=== PATIENT | female | born 1975 | race American Indian/Alaskan Native ===

== ENCOUNTER 2017-04-29 18:58 | Emergency (ER) | payer BC ==
[2017-04-29 19:08] VITALS: BMI 19.3
[2017-04-29 19:11] VITALS: BP 99/63; PULSE 88; RESP 18; TEMP 97.8; O2SAT 98
--- NOTE | 2017-04-29 20:01 | C.PDOC ---
History Of Present Illness 41 yo female come in for evaluation of Right flank pain gradually developed for past 1 week. Pain is intermittent, localized, worse with movement. Pt sts, " work at post-office, lifting lots of staff daily". Otherwise, pt denies known direct trauma or injury, fever, chills, abd. pain, N/V, UTI sx, saddle anesthesia, urinary or fecal incontinence, denies weakness, sensory or vascular deficits to B/L lEs. Ambulate to ED for evaluation, not in any apparent distress. Time Seen by Provider: 04/29/17 19:30 Chief Complaint (Nursing): Back Pain History Per: Patient Onset/Duration Of Symptoms: Gradual Past Medical History Reviewed: Historical Data, Nursing Documentation, Vital Signs Vital Signs: Last Vital Signs Temp 97.8 F 04/29/17 19:08 Pulse 88 04/29/17 19:08 Resp 18 04/29/17 19:08 BP 99/63 L 04/29/17 19:08 Pulse Ox 98 04/29/17 20:04 - Medical History PMH: Back Problems Family History: States: No Known Family Hx - Social History Hx Alcohol Use: Yes Hx Substance Use: No - Immunization History Hx Tetanus Toxoid Vaccination: No Hx Influenza Vaccination: No Hx Pneumococcal Vaccination: No Review Of Systems Except As Marked, All Systems Reviewed And Found Negative. Constitutional: Negative for: Fever, Chills ENT: Negative for: Throat Pain Respiratory: Negative for: Cough Gastrointestinal: Negative for: Nausea, Vomiting, Abdominal Pain, Diarrhea Genitourinary: Negative for: Dysuria, Frequency, Incontinence Musculoskeletal: Positive for: Back Pain Skin: Negative for: Rash Neurological: Negative for: Weakness, Numbness, Altered Mental Status, Headache , Dizziness Physical Exam - Physical Exam Appears: Well, Non-toxic, No Acute Distress Skin: Normal Color, Warm, Dry Throat: No Erythema, No Exudate, No Drooling Neck: Supple Gastrointestinal/Abdominal: Soft, No Tenderness, No Distention, No Guarding Back: No CVA Tenderness, No Vertebral Tenderness, Paraspinal Tenderness (mild Right lumbar), Other (Right flank tenderness, no skin changes.) Extremity: No Pedal Edema, No Deformity Neurological/Psych: Oriented x3, Normal Speech, Normal Motor, Normal Sensation, Normal Reflexes ED Course And Treatment O2 Sat by Pulse Oximetry: 98 Pulse Ox Interpretation: Normal Progress Note: On re-evaluation, pt is afebrile, hemodynamicaly stable. NOn- toxic. Ambulatory in ED with stable gait. NOt in any apparent distress. PulsEOx 98% RA. neck: (-) meningeal sign. ENT: no acute findings. uvula midline, no edema. Lungs: CTA B/L, BS equal B/L. Abd: benign, (-) guaridng, (- ) rebound. back: (-) CVA tenderness. Neurologicaly intact. UA review (+)WBC. Pt has clinical findings c/w Right flank pain r/o early UTI. Advised to F/U with PMD in 1-2 days for re-eavl. Disposition Counseled Patient/Family Regarding: Studies Performed, Diagnosis, Need For Followup, Rx Given - Disposition Referrals: [facility] [Outside] Disposition: HOME/ ROUTINE Disposition Time: 21:06 Condition: STABLE Additional Instructions: Light duty, avoid heavy lifting for 1 week take medication as prescribed Follow up with PMD in 2-3 days for re-evaluation. Return to ED if any worsening or new changes. Prescriptions: Ciprofloxacin [Cipro] 1 tab PO BID #10 tab Methocarbamol [Robaxin] 500 mg PO TID #14 tab traMADol [Ultram] 50 mg PO TID #7 tab Instructions: Flank Pain (ED), Urinary Tract Infection in Women (ED) Forms: Work Excuse - Clinical Impression Clinical Impression: Flank pain, UTI (urinary tract infection)
[2017-04-29 20:55] LABS: URINE BILIRUBIN NEGATIVE (NEGATIVE); URINE BLOOD NEGATIVE (NEGATIVE); URINE COLOR Yellow (YELLOW); URINE GLUCOSE (UA) NORMAL (Normal); URINE KETONE TRACE mg/dL (NEGATIVE); URINE LEUKOCYTE ESTERASE 1+ Leu/uL (Negative); URINE PROTEIN NEGATIVE (NEGATIVE)
[2017-04-29 21:03] LABS: TRANSITIONAL EPITHIAL < 1 /hpf (0-3); URINE BACTERIA RARE (<OCC); WBC URINE 5 /hpf (0-5)
== END 2017-04-29 21:20 | disposition home or self-care (01) ==
LOC: C.ER 18:58
DX: N39.0 Urinary tract infection, site not specified (principal); R10.9 Unspecified abdominal pain

== ENCOUNTER 2017-12-31 08:28 | Inpatient (IN) | payer BC ==
[2017-12-31] MEDS ORDERED: Lactated Ringer's 1,000 ML IV SCH (09:15)
[2017-12-31 09:21] LABS: BASO # 0.2 K/uL (0.0-0.2); BASO % 1.7 % (0.0-2.0); EOS # 0.2 K/uL (0.0-0.7); HEMOGLOBIN 10.6 g/dL (11.0-16.0); LYMPH # 2.4 K/uL (1.0-4.3); LYMPH % 24.9 % (20.0-40.0); MEAN CELL VOLUME 97.1 fL (81.0-99.0); MEAN CORPUSCULAR HEMOGLOBIN 33.5 pg (27.0-31.0); MEAN CORPUSCULAR HGB CONC 34.5 g/dL (33.0-37.0); MEAN PLATELET VOLUME 9.8 fL (7.2-11.7); MONO # 0.8 K/uL (0.0-0.8); MONO % 8.5 % (0.0-10.0); NEUT # 6.1 K/uL (1.8-7.0); NEUT % 62.9 % (50.0-75.0); RBC 3.18 Mil/uL (3.80-5.20); RED CELL DISTRIBUTION WIDTH 13.9 % (11.5-14.5); WHITE BLOOD COUNT 9.7 K/uL (4.8-10.8)
[2017-12-31 09:33] LABS: SQUAMOUS EPITHIAL 26 /hpf (0-5); URINE BACTERIA MANY (<OCC); URINE BILIRUBIN NEGATIVE (NEGATIVE); URINE BLOOD NEGATIVE (NEGATIVE); URINE CLARITY Hazy (Clear); URINE COLOR Yellow (YELLOW); URINE GLUCOSE (UA) NORMAL (Normal); URINE LEUKOCYTE ESTERASE 1+ Leu/uL (Negative); URINE NITRATE NEGATIVE (NEGATIVE); URINE PROTEIN 2+ mg/dL (NEGATIVE)
[2017-12-31 09:34] LABS: ALB/GLOB RATIO 0.9 (1.0-2.1); ALBUMIN 3.4 g/dL (3.5-5.0); ALT/SGPT 8 U/L (9-52); AST/SGOT 19 U/L (14-36); BLOOD UREA NITROGEN 6 mg/dL (7-17); CALCIUM 8.6 mg/dl (8.6-10.4); GFR AFRICAN-AMERICAN > 60; GFR NON-AFRICAN AMERICAN > 60
[2017-12-31 09:38] LABS: BARBITURATES, UR NEGATIVE (NEGATIVE); BENZODIAZEPINES, UR NEGATIVE (NEGATIVE); OPIATES, UR NEGATIVE (NEGATIVE); PHENCYCLIDINE, UR NEGATIVE (NEGATIVE)
[2017-12-31] MEDS ORDERED: Sodium Citrate/Citric Acid 15 ml Sol PO ONE (09:45)
[2017-12-31] MEDS ORDERED: Oxytocin 20 units in LR 2,000 ML IV ONE (10:30)
[2017-12-31] MEDS ORDERED: Morphine 1 mg/ml preservative-free Inj(Duramorph) ONE (10:53)
[2017-12-31] MEDS ORDERED: Midazolam 2 MG/2 ML VIAL ONE (11:36)
[2017-12-31] MEDS ORDERED: Oxycodone/Acetaminophen 5/325 mg Tab PO PRN (12:00)
--- NOTE | 2017-12-31 12:40 | OBHP ---
Datetime: 12/31/2017 09:48 IP Adm Impression: Term, intrauterine ; Active labor IP Admit Plan: Admit to unit; Initiate Section protocol Admit Comment, IP Provider: This is a private patient of Dr. Guzman 42 y.o. , LMP unsure, LULY 01/13/18, EGA 38w 1d for elective repeat C/S with BTL. (+) AFM; d enies LOF, VB; (+) mild and occasional lower abdominal pressure; denies Ctx. Seen [place] [facility] [place], c/ o Ctx; found to be closed and sent home. Then saw saw Carlitos PINON [facility] 12/28/17. care: Dr. Guzman, ad vanced maternal age, h/o delivery, prev C/S, h/o pre-eclampsia; anemia; multiparity, desires permanent sterilization P Ob: 1992, VTOP, with D_C; 1998, VTOP, with D_C; 1999, Spont ab, no D_C; 2001, Stillborn at "term "/ 38 weeks; 2003, , female, 4lb 7oz, "term"; 2004, VTOP, 2 months, with D_C; 2014, C/S at 36 week s, pre-eclampsia, male 5lb 70z, [facility]; no other complications. 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 Denies h/o STIs, abnormal Pap, ovarian cysts or fibroids. PMH: pre-eclampsia; anemia PSH: D_C x 3; C/S x1 NKDA Meds: PNV, iron - QD Soc Hx: (+) tobacco use: prior to , 7-10 cig/day x 22 years; current, 4 cig/d; h/o marij uana use: prior to up to 4 times a day; denies EtOH use. x 17 years. Fam Hx: Mother alive 60 - HTN. Father alive 62 - no med issues. 1 mat aunt - Breast cancer surviv or, age 54 P.E.: as above. WD in NAD. Awake, alert, oriented to time, person and place. Pleasant and coopera tive. Accompanied by Assessment: 42 y.o. P2142, 38w 1d, prev C/S, h/o delivery for elective repeat C/S with BTL . Category [address] Guzman to obtain surgical consent/s upon his arrival. Plan: 1) Admit 2) NPO 3) IVFs 4) Continuous EFM 5) Abdominal prep and shave 6) Luevano 7) Pre-op meds 8) Notify anesthesia 9) Notify peds 10) special education preschool teacher to O.R. - Dr. Guzman is aware Pelvic Type - PN: Not Done Extremities - PN: Normal Abdomen - PN: Normal Back - PN: Normal Breast - PN: Not Done Lungs - PN: Normal Heart - PN: Normal Thyroid - PN: Not Done Neurologic - PN: Normal HEENT - PN: Normal General - PN: Normal Presentation-Admit: Vertex FHR - Baseline A Provider: 130 Contraction Comments Provider: 2-4 Comments, ACOG Physical Exam: Abdomen: Gravid. Soft. Non tender in all quadrants. Fundal height 34 c m. Healed Pfannenstiel scar All other systems reviewed and are negative Gestation - Est Wks by US: 38w 1d IP Hx Assessment: The History has been Reviewed and is Current EGA AdmitDate IP: 38.1 Vital Signs Provider: Reviewed IP Chief Complaint: Maternal discomfort NICHD Variability Prov Fetus A: Moderate 6-25bpm NICHD Accel Fetus A IP Provider: [id number] FHR Category Provider Fetus A: Category I Dilatation, Provider: deferred Genitourinary Exam: Not Done DTRs - PN: Not Done
--- NOTE | 2017-12-31 12:44 | OBADHP ---
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 , LMP unsure, LULY 01/13/18, EGA 38w 1d for elective repeat C/S with BTL. (+) AFM; d enies LOF, VB; (+) mild and occasional lower abdominal pressure; denies Ctx. Seen at [facility] 12/25/17, c/ o Ctx; found to be closed and sent home. Then saw saw [facility] 12/28/17. 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 P POKE IN: 12 x monthly x 3. Denies h/o STIs, abnormal Pap, ovarian cysts or fibroids. PMH: pre-eclampsia; anemia PSH: D_C x 3; C/S x1 NKDA Meds: PNV, iron - QD Soc Hx: (+) tobacco use: prior to , 7-10 cig/day x 22 years; current, 4 cig/d; h/o marij uana use: prior to up to 4 times a day; denies EtOH use. x 17 years. Fam Hx: Mother alive 60 - HTN. Father alive 62 - no med issues. 1 mat aunt - Breast cancer surviv or, age 54 P.E.: as above. WD in NAD. Awake, alert, oriented to time, person and place. Pleasant and coopera tive. Accompanied by Assessment: 42 y.o. P2142, 38w 1d, prev C/S, h/o delivery for elective repeat C/S with BTL . Category [address] Guzman to obtain surgical consent/s upon his arrival. Plan: 1) Admit 2) NPO 3) IVFs 4) Continuous EFM 5) Abdominal prep and shave 6) Luevano 7) Pre-op meds 8) Notify anesthesia 9) Notify peds 10) vp public relations to O.R. - Dr. Guzman is aware Pelvic Type - PN: Not Done Extremities - PN: Normal Abdomen - PN: Normal Back - PN: Normal Breast - PN: Not Done Lungs - PN: Normal Heart - PN: Normal Thyroid - PN: Not Done Neurologic - PN: Normal HEENT - PN: Normal General - PN: Normal Presentation-Admit: Vertex FHR - Baseline A Provider: 130 Contraction Comments Provider: 2-4 Comments, ACOG Physical Exam: Abdomen: Gravid. Soft. Non tender in all quadrants. Fundal height 34 c m. Healed Pfannenstiel scar All other systems reviewed and are negative Gestation - Est Wks by US: 38w 1d IP Hx Assessment: The History has been Reviewed and is Current Vital Signs Provider: Reviewed IP Chief Complaint: Maternal discomfort NICHD Variability Prov Fetus A: Moderate 6-25bpm NICHD Accel Fetus A IP Provider: [id number] FHR Category Provider Fetus A: Category I Dilatation, Provider: deferred Genitourinary Exam: Not Done DTRs - PN: Not Done EGA AdmitDate IP: 38.1 IP Adm Impression: Term, intrauterine ; Active labor IP Admit Plan: Admit to unit; Initiate Section protocol
[2017-12-31] MEDS ORDERED: DiphenhydrAMINE 50 mg/ml Inj IVP PRN (12:48)
--- NOTE | 2017-12-31 15:22 | HP ---
HISTORY OF PRESENT ILLNESS: The patient is a 42-year-old female, 38 weeks 5 days with due date of 01/13/2018, previous x 2, who was coming in complaining of contractions since 4 am The patient denies any leakage of fluid. Denies any vaginal bleeding. The patient also desires sterilization. PAST OBSTETRICAL HISTORY: Significant for section x2, both deliveries. The patient's current course has been essentially unremarkable except for noncompliance with medications and a positive THC on 08/11/2017. The patient also has significant history of placenta previa initially, but subsequent ultrasounds have shown resolution of the placenta previa. Last ultrasound done on 11/30/2017 showed no previa. MEDICAL HISTORY: Unremarkable. ALLERGIES: NONE. SOCIAL HISTORY: She has history of THC use, currently she is not taking. MEDICATIONS: She is taking vitamins 1 tablet daily. PHYSICAL EXAMINATION: VITAL SIGNS: Her blood pressure is 110/70, pulse is 72, respiratory rate is 20, temperature is 98.8. HEAD, EAR, NOSE AND THROAT: Within normal. CHEST: Clear. CARDIAC: Reveals normal heart sounds without any murmurs. LUNGS: Clear. BREASTS: No masses. ABDOMEN: Soft. Symphyseal-fundal height is 38 cm longitudinal lie, vertex. heart tones are normal. PELVIC: Cervix long, closed and posterior. ADMITTING DIAGNOSES: Intrauterine at 38 weeks, previous section x2, desires sterilization. PLAN: To perform a lower segment section with bilateral tubal ligation. Prior to being scheduled for the surgical procedure, the patient underwent an informed consent. Discussion and education session with me in the hospital, lasting approximately 45 minutes. During which time I explained with understandable terms the following: The nature and extent of the disease process and the nature and extent of the contemplated operation. I also explained to her the risks and potential complications of the operative procedures to include but not limited to infection, hemorrhage, deep vein thrombosis, atelectasis, pneumonia, pulmonary embolism, damage to the bladder, damage to the ureter, renal insufficiency, renal failure, wound infection, wound dehiscence, incisional hernia, keloid formation, damage to large and small intestine, damage to the inferior vena cava and the aorta requiring extensive repair, anesthesia complications, electrolyte imbalance, possibility of , failure of sterilization, ectopic pregnancies and other complications that were discussed but are not listed above. Also discussed with the patient the anticipated benefits and results with surgery including a conservative estimate of the successful outcome. I discussed with the patient about the operation that were not accomplished. I informed the patient the possibility of unanticipated pathology requiring a more extensive procedure. All of the questions from the patient were encouraged, welcomed and answered to her satisfaction. The patient was given the opportunity to store her own blood for using in autologous blood transfusion prenatally and she had declined. Diane Rodríguez MD
[2017-12-31 17:44] VITALS: O2SAT 98
[2017-12-31] MEDS: Simethicone 80 mg Chewtab PO SCH (18:10)
[2017-12-31] MEDS: cefOXitin 2 GM in Sodium Chloride 0.9% 100 ML IVPB SCH (18:40)
--- NOTE | 2017-12-31 20:11 | OP ---
PROCEDURE DATE: 12/31/2017. PREOPERATIVE DIAGNOSES: Intrauterine at 38 weeks, previous section x2, in labor, desires sterilization. POSTOPERATIVE DIAGNOSES: Intrauterine at 38 weeks, previous section x2, in labor, desires sterilization. PROCEDURES: Lower segment section with bilateral tubal ligation using a modified Jennifer technique. FINDINGS: A live female infant. Apgars 9 at 1 minute and 9 at 5 minutes with normal tubes and ovaries. SURGEON: Diane Rodríguez MD SUPERVISOR EXTRUSION: Mynor Vargas MD. ESTIMATED BLOOD LOSS: 250 mL. COMPLICATIONS: Nil. DESCRIPTION OF PROCEDURE: After the risks, benefits, and alternatives of the planned procedures including but not limited to infection, hemorrhage, deep vein thrombosis, atelectasis, pneumonia, pulmonary embolism, damage to the bladder, damage to the ureter, renal insufficiency, renal failure, wound infection, wound dehiscence, incisional hernia, keloid formation, damage to large and small intestines, low scores, breathing difficulties in the baby and other complications that were discussed, but are not listed above have been explained to the patient and all her questions were answered and informed consent was obtained. The patient was taken to the operating room in a stable condition. Under suitable level of spinal analgesia, she was prepped and draped in a sterile fashion after having been placed in a supine position. The abdomen was entered through a Pfannenstiel-type incision and carried through the subcutaneous tissues to the fascia. Fascia was opened transversely and dissected off the rectus abdominis musculature. The rectus abdominis musculature was then in the midline to remove the parietal peritoneum, which was entered sharply and incised superiorly and inferiorly. The bladder peritoneum was then incised in a curvilinear fashion and dissected off the lower uterine segment. The lower uterine segment was then entered through a curvilinear incision. Surgeon's fingers were inserted into the lower uterine segment to grasp the infant's head, which was lying in a right occipital anterior position. The head was easily delivered, nose and mouth was suctioned free of amniotic fluid, and the remainder of the infant was delivered without any difficulty. Cord was doubly clamped and cut and the baby was handed over to the human capital analyst who was in attendance. A section of cord was submitted for cord gases. Cord blood was then collected, placenta was manually removed. The endometrium was then cleaned free of remaining membranes and clots. The uterine incision was then closed in two layers with the first layer being a running interlocking layer using #1 chromic and the second layer being used to imbricate the first layer. Hemostasis was good. Bladder peritoneum was then reapproximated using a running suture of 2-0 chromic. Right fallopian tube was grasped and pulled into a loop. The base of the loop was ligated using 0 plain suture. Two separate pieces of 0 chromic suture were passed over the mesosalpinx in this end of the loop and the proximal and distal segment of fallopian tube being closed within the loop was then visually ligated close with a plain suture as possible. A segment of fallopian tube being closed within the loop was resected. It was approximately 3 cm in length. The ends of the fallopian tubes were then fulgurated using cautery. An identical procedure was repeated on the left side. At the end of the procedure, peritoneal cavity was then irrigated using copious amounts of saline. The saline was evacuated. The abdomen was then closed in layers with 0 chromic to the parietal peritoneum. Rectus muscles were reapproximated using interrupted sutures of 0 chromic. Fascia was reapproximated using 2 separate running sutures of 0 Vicryl. Subcutaneous tissues were reapproximated using interrupted sutures of 0 plain and the initial skin incision was reapproximated using 4-0 Vicryl in a subcuticular fashion. Estimated blood loss for the procedure was 250 mL. Pad, needle, and instrument counts were correct x2. There were no complications. Diane Rodríguez MD
[2018-01-01] MEDS: Simethicone 80 mg Chewtab PO SCH ×6 (00:18→22:07)
[2018-01-01] MEDS: cefOXitin 2 GM in Sodium Chloride 0.9% 100 ML IVPB SCH ×2 (03:21→12:21)
[2018-01-01 07:53] LABS: BASO % 0.4 % (0.0-2.0); EOS % 0.3 % (0.0-4.0); HEMOGLOBIN 9.8 g/dL (11.0-16.0); LYMPH # 2.1 K/uL (1.0-4.3); MEAN CORPUSCULAR HEMOGLOBIN 33.9 pg (27.0-31.0); MEAN CORPUSCULAR HGB CONC 34.1 g/dL (33.0-37.0); MONO # 0.5 K/uL (0.0-0.8); NEUT # 8.9 K/uL (1.8-7.0); NEUT % 77.3 % (50.0-75.0); RBC 2.88 Mil/uL (3.80-5.20); RED CELL DISTRIBUTION WIDTH 13.8 % (11.5-14.5); WHITE BLOOD COUNT 11.5 K/uL (4.8-10.8)
[2018-01-01 08:06] LABS: MEAN CELL VOLUME 99.3 fL (81.0-99.0)
[2018-01-01] MEDS: Oxycodone/Acetaminophen 5/325 mg Tab PO PRN ×2 (09:18→16:01)
[2018-01-01] MEDS: Enoxaparin 40 mg Syringe SC SCH (09:29)
[2018-01-01] MEDS ORDERED: Bisacodyl 5mg EC Tab PO ONE (12:00)
[2018-01-02] MEDS: Simethicone 80 mg Chewtab PO SCH ×4 (09:15→21:47)
[2018-01-02] MEDS: Enoxaparin 40 mg Syringe SC SCH (09:20)
[2018-01-02] MEDS ORDERED: Influenza Vaccine 60 mcg/0.5 mL SYR (4YR UP) IM ONE (09:29)
[2018-01-02] MEDS: Oxycodone/Acetaminophen 5/325 mg Tab PO PRN ×2 (10:37→21:46)
[2018-01-02] MEDS ORDERED: Oxycodone/Acetaminophen 5/325 mg Tab ONE (10:38)
[2018-01-03 08:42] VITALS: BP 122/72; PULSE 87; TEMP 99
[2018-01-03] MEDS: Simethicone 80 mg Chewtab PO SCH (09:37)
[2018-01-03] MEDS: Enoxaparin 40 mg Syringe SC SCH (09:38)
[2018-01-03] MEDS: Oxycodone/Acetaminophen 5/325 mg Tab PO PRN (09:41)
[2018-01-03 17:48] VITALS: RESP 18
== END 2018-01-03 13:47 | disposition home or self-care (01) | DRG 766 ==
LOC: C.EROB 08:28 → C.4D 08:37 → C.4M 16:00
PROVIDERS: ADMIT Obstetrics & Gynecology Reproductive Endocrinology; ATTEND Obstetrics & Gynecology Reproductive Endocrinology
PROC: 10D00Z1 Extraction of Products of Conception, Low, Open Approach (ICD-10-PCS; principal; 2017-12-31)
PROC: 0UB70ZZ Excision of Bilateral Fallopian Tubes, Open Approach (ICD-10-PCS; 2017-12-31)
DX: O34.211 Maternal care for low transverse scar from previous cesarean delivery (principal); O75.82 Onset (spontaneous) of labor after 37 completed weeks of gestation but before 39 completed weeks gestation, with delivery by (planned) cesarean section; Z30.2 Encounter for sterilization; Z3A.38 38 weeks gestation of pregnancy; Z37.0 Single live birth